=== PATIENT | female | born 1955 | race Caucasian/White ===

== ENCOUNTER → 2017-05-22 | Outpatient (CLI) | payer BC ==
[2016-05-16 12:35] VITALS: BP 128/78
[~2017-05-22] MED LIST: ACETAMINOPHEN-H1 TA2 PO; ACIPHEX20 MG PO; ALLEGRA 180MG180 MG PO; ASTELIN137 MCG/AC NS; BEPREVE15 MG/ML OP; CEFDINIR300 MG PO; EPA FISH OIL1000 MG PO; FLEXERIL 1010 MG/TAB PO; FLONASE ALLERG9.9 ML NS; LANSOPRAZOLE30 MG PO; LEVOTHYROXINE0.05 MG PO; LEXAPRO 10MG10 MG PO; LIBRAX 5 MG-2.51 CA1 PO; LISINOPRIL10 MG PO; LUNESTA3 MG PO; MEDROL DOSEPAK4 MG PO; METHOCARBAMOL750 MG PO; MIRALAX17 GM/DOSE PO; MIRAPEX0.125 M1 PO; MULTIPLE VITAMI1 TAB PO; NEURONTIN300 MG/CAP PO; PERCOCET 325 MG1 TAB PO; PREDNISONE1 MG PO; PREMARIN 0.60.625 M1 PO; PROAIR RESPICL90 MCG IH; PROVIGIL 100MG100 MG PO; REQUIP0.5 MG PO; SYSTANE LUBRICAN5 ML; TEMOVATE CREAM15 GM TP; TEMOVATE0.052 TOP; VERAMYST27.5 MCG/A INH; VITAMIN D31000 IU PO; ZOMIG5 MG PO
[2017-05-22 12:05] LABS: EOS # 0.1 (0.04-0.40); EOS % 1.4 % (1.0-5.0); HEMATOCRIT 38.4 % (37.0-47.0); HEMOGLOBIN 12.5 g/dL (12.5-16.0); LYMPH# 2.3 (1.50-4.00); MEAN CELL VOLUME 87 fl (78-100); MEAN CORPUSCULAR HEMOGLOBIN 28 pg (27-31); MEAN CORPUSCULAR HGB CONC 33 g/dL (33-37); MEAN PLATELET VOLUME 8.7 fl (7.4-10.4); MONO # 0.8 (0.20-0.80); NEU # 5.1 (1.40-6.50); PLATELET COUNT 433 K/mm3 (130-400); RED BLOOD COUNT 4.44 M/mm3 (4.10-5.30); RED CELL DISTRIBUTION WIDTH 14.5 % (11.5-14.5); WHITE BLOOD COUNT 8.3 K/mm3 (4.8-10.8)
[2017-05-22 12:15] LABS: ALBUMIN 4.1 g/dL (3.5-5.0); BUN/CREATININE RATIO 11.4 (6.0-26.0); POTASSIUM 4.5 mmol/L (3.6-5.0); TOTAL BILIRUBIN 0.4 mg/dL (0.2-1.3); TOTAL PROTEIN 7.5 g/dL (6.3-8.2)
[2017-05-22 13:09] LABS: ERYTHROCYTE SEDIMENTATION RATE 15 mm/hr (0-30)
== END ==
LOC: RAD 11:44
PROVIDERS: Internal Medicine
DX: D64.9 Anemia, unspecified (principal); I10 Essential (primary) hypertension; E78.5 Hyperlipidemia, unspecified; Z12.11 Encounter for screening for malignant neoplasm of colon; M81.0 Age-related osteoporosis without current pathological fracture; E03.4 Atrophy of thyroid (acquired); R06.00 Dyspnea, unspecified

== ENCOUNTER → 2017-09-05 | Outpatient (CLI) | payer BC ==
[2016-05-16 12:35] VITALS: BP 128/78
[2017-09-05 16:12] LABS: ALBUMIN 3.7 g/dL (3.5-5.0); BUN/CREATININE RATIO 11.4 (6.0-26.0); CALCIUM 8.7 mg/dL (8.4-10.2); POTASSIUM 4.5 mmol/L (3.6-5.0); TOTAL BILIRUBIN 0.1 mg/dL (0.2-1.3); TOTAL PROTEIN 6.9 g/dL (6.3-8.2)
[2017-09-05 16:46] LABS: EOS # 0.1 (0.04-0.40); EOS % 1.6 % (1.0-5.0); HEMATOCRIT 37.1 % (37.0-47.0); HEMOGLOBIN 11.6 g/dL (12.5-16.0); LYMPH# 1.8 (1.50-4.00); MEAN CELL VOLUME 88 fl (78-100); MEAN CORPUSCULAR HEMOGLOBIN 27 pg (27-31); MEAN CORPUSCULAR HGB CONC 31 g/dL (33-37); MEAN PLATELET VOLUME 9.2 fl (7.4-10.4); MONO # 0.8 (0.20-0.80); NEU # 5.3 (1.40-6.50); PLATELET COUNT 441 K/mm3 (130-400); RED BLOOD COUNT 4.24 M/mm3 (4.10-5.30); RED CELL DISTRIBUTION WIDTH 15.1 % (11.5-14.5); WHITE BLOOD COUNT 8.1 K/mm3 (4.8-10.8)
[2017-09-05 17:54] LABS: ERYTHROCYTE SEDIMENTATION RATE 33 mm/hr (0-30)
== END ==
LOC: LAB 15:19
PROVIDERS: Internal Medicine
DX: I10 Essential (primary) hypertension (principal); J45.998 Other asthma

== ENCOUNTER → 2018-06-12 | Outpatient (CLI) | payer MEDICARE, BC ==
[2016-05-16 12:35] VITALS: BP 128/78
[2018-06-12 16:01] LABS: EOS # 0.1 (0.04-0.40); EOS % 1.4 % (1.0-5.0); HEMATOCRIT 37.5 % (37.0-47.0); LYMPH# 2.9 (1.50-4.00); MEAN CELL VOLUME 87 fl (78-100); MEAN CORPUSCULAR HEMOGLOBIN 28 pg (27-31); MEAN CORPUSCULAR HGB CONC 32 g/dL (33-37); MEAN PLATELET VOLUME 9.2 fl (7.4-10.4); MONO # 0.8 (0.20-0.80); NEU # 6.4 (1.40-6.50); PLATELET COUNT 457 K/mm3 (130-400); RED CELL DISTRIBUTION WIDTH 15.1 % (11.5-14.5); WHITE BLOOD COUNT 10.3 K/mm3 (4.8-10.8)
[2018-06-12 17:07] LABS: ALBUMIN 4.4 g/dL (3.5-5.0); CALCIUM 9.5 mg/dL (8.4-10.2); POTASSIUM 4.5 mmol/L (3.6-5.0); TOTAL BILIRUBIN 0.2 mg/dL (0.2-1.3); TOTAL PROTEIN 7.2 g/dL (6.3-8.2)
[2018-06-12 17:11] LABS: ERYTHROCYTE SEDIMENTATION RATE 18 mm/hr (0-30)
== END ==
LOC: LAB 15:27
PROVIDERS: Internal Medicine
DX: Z12.11 Encounter for screening for malignant neoplasm of colon (principal); I10 Essential (primary) hypertension; E78.5 Hyperlipidemia, unspecified; E03.9 Hypothyroidism, unspecified; M81.0 Age-related osteoporosis without current pathological fracture

== ENCOUNTER → 2019-07-20 | Outpatient (CLI) | payer MEDICARE, BC ==
[2016-05-16 12:35] VITALS: BP 128/78
[2019-07-20 08:57] LABS: BASO # 0.1 (0.02-0.10); EOS # 0.2 (0.04-0.40); EOS % 1.4 % (1.0-5.0); HEMATOCRIT 40.8 % (37.0-47.0); HEMOGLOBIN 12.7 g/dL (12.5-16.0); LYMPH# 3.4 (1.50-4.00); MEAN CELL VOLUME 92 fl (78-100); MEAN CORPUSCULAR HEMOGLOBIN 29 pg (27-31); MEAN CORPUSCULAR HGB CONC 31 g/dL (33-37); MEAN PLATELET VOLUME 8.7 fl (7.4-10.4); MONO # 0.8 (0.20-0.80); NEU # 7.2 (1.40-6.50); PLATELET COUNT 395 K/mm3 (130-400); RED BLOOD COUNT 4.42 M/mm3 (4.10-5.30); WHITE BLOOD COUNT 11.6 K/mm3 (4.8-10.8)
[2019-07-20 09:35] LABS: ALBUMIN 3.8 g/dL (3.4-4.8); POTASSIUM 3.8 mmol/L (3.5-5.1)
[2019-07-20 09:38] LABS: TOTAL PROTEIN 6.8 g/dL (6.2-8.1)
[2019-07-20 09:40] LABS: TOTAL BILIRUBIN 0.2 mg/dL (0.2-1.2)
[2019-07-20 10:00] LABS: ERYTHROCYTE SEDIMENTATION RATE 11 mm/hr (0-30)
== END ==
LOC: LAB 08:42
PROVIDERS: Internal Medicine
DX: I10 Essential (primary) hypertension (principal); R06.00 Dyspnea, unspecified

== ENCOUNTER → 2019-07-26 | Outpatient (CLI) | payer MEDICARE, BC ==
[2016-05-16 12:35] VITALS: BP 128/78
== END ==
LOC: RAD 15:47
DX: J01.90 Acute sinusitis, unspecified (principal); R06.00 Dyspnea, unspecified; R91.1 Solitary pulmonary nodule
CPT/HCPCS: Q9967

== ENCOUNTER → 2020-02-03 | Outpatient (CLI) | payer MEDICARE, BC ==
[2016-05-16 12:35] VITALS: BP 128/78
[2020-02-03 12:43] LABS: EOS # 0.1 (0.04-0.40); EOS % 1.4 % (1.0-5.0); HEMATOCRIT 40.9 % (37.0-47.0); HEMOGLOBIN 13.4 g/dL (12.5-16.0); LYMPH# 1.9 (1.50-4.00); MEAN CELL VOLUME 90 fl (78-100); MEAN CORPUSCULAR HEMOGLOBIN 30 pg (27-31); MEAN CORPUSCULAR HGB CONC 33 g/dL (33-37); MEAN PLATELET VOLUME 8.9 fl (7.4-10.4); MONO # 0.7 (0.20-0.80); NEU # 5.2 (1.40-6.50); PLATELET COUNT 433 K/mm3 (130-400); RED BLOOD COUNT 4.55 M/mm3 (4.10-5.30); RED CELL DISTRIBUTION WIDTH 13.8 % (11.5-14.5); WHITE BLOOD COUNT 7.9 K/mm3 (4.8-10.8)
[2020-02-03 12:51] LABS: POTASSIUM 4.5 mmol/L (3.5-5.1)
[2020-02-03 12:52] LABS: ALBUMIN 4.1 g/dL (3.4-4.8)
[2020-02-03 12:53] LABS: CALCIUM 9.1 mg/dL (8.3-10.5)
[2020-02-03 12:54] LABS: TOTAL PROTEIN 7.7 g/dL (6.2-8.1)
[2020-02-03 12:56] LABS: TOTAL BILIRUBIN 0.2 mg/dL (0.2-1.2)
[2020-02-03 13:41] LABS: ERYTHROCYTE SEDIMENTATION RATE 23 mm/hr (0-30)
== END ==
LOC: LAB 12:25
PROVIDERS: Internal Medicine
DX: Z12.11 Encounter for screening for malignant neoplasm of colon (principal); I10 Essential (primary) hypertension; E78.5 Hyperlipidemia, unspecified; M81.0 Age-related osteoporosis without current pathological fracture; J45.909 Unspecified asthma, uncomplicated; E03.9 Hypothyroidism, unspecified; R20.2 Paresthesia of skin

== ENCOUNTER → 2020-02-16 | Outpatient (CLI) | payer MEDICARE, BC ==
[2016-05-16 12:35] VITALS: BP 128/78
== END ==
LOC: MAMMO 14:16
DX: Z12.31 Encounter for screening mammogram for malignant neoplasm of breast (principal)

== ENCOUNTER → 2020-02-16 | Outpatient (CLI) | payer MEDICARE, BC ==
[2016-05-16 12:35] VITALS: BP 128/78
== END ==
LOC: RAD 14:18
DX: M25.511 Pain in right shoulder (principal)

== ENCOUNTER → 2020-08-04 | Outpatient (CLI) | payer MEDICARE, BC ==
[2016-05-16 12:35] VITALS: BP 128/78
[2020-08-04 17:51] LABS: EOS # 0.1 (0.04-0.40); EOS % 1.6 % (1.0-5.0); HEMATOCRIT 39.9 % (37.0-47.0); HEMOGLOBIN 12.8 g/dL (12.5-16.0); LYMPH# 2.5 (1.50-4.00); MEAN CELL VOLUME 90 fl (78-100); MEAN CORPUSCULAR HEMOGLOBIN 29 pg (27-31); MEAN CORPUSCULAR HGB CONC 32 g/dL (33-37); MEAN PLATELET VOLUME 9.1 fl (7.4-10.4); MONO # 0.7 (0.20-0.80); NEU # 5.4 (1.40-6.50); PLATELET COUNT 412 K/mm3 (130-400); RED BLOOD COUNT 4.46 M/mm3 (4.10-5.30); RED CELL DISTRIBUTION WIDTH 13.8 % (11.5-14.5); WHITE BLOOD COUNT 8.8 K/mm3 (4.8-10.8)
[2020-08-04 17:59] LABS: ALBUMIN 4.1 g/dL (3.4-4.8); POTASSIUM 4.3 mmol/L (3.5-5.1)
[2020-08-04 18:00] LABS: CALCIUM 8.8 mg/dL (8.3-10.5)
[2020-08-04 18:01] LABS: TOTAL PROTEIN 7.2 g/dL (6.2-8.1)
[2020-08-04 18:03] LABS: TOTAL BILIRUBIN 0.2 mg/dL (0.2-1.2)
== END ==
LOC: LAB 17:33
PROVIDERS: Internal Medicine
DX: I10 Essential (primary) hypertension (principal); E03.4 Atrophy of thyroid (acquired); M81.0 Age-related osteoporosis without current pathological fracture; E78.5 Hyperlipidemia, unspecified

== ENCOUNTER → 2021-03-05 | Outpatient (CLI) | payer MEDICARE, BC ==
[2021-03-05 15:16] LABS: BASO # 0.02 (0.02-0.10); EOS # 0.16 (0.04-0.40); EOS % 2.6 % (1.0-5.0); HEMATOCRIT 40.3 % (37.0-47.0); HEMOGLOBIN 13.4 g/dL (12.5-16.0); LYMPH# 2.07 (1.50-4.00); MEAN CELL VOLUME 90 fl (78-100); MEAN CORPUSCULAR HEMOGLOBIN 30 pg (27-31); MEAN CORPUSCULAR HGB CONC 33 g/dL (33-37); MEAN PLATELET VOLUME 9.2 fl (7.4-10.4); MONO # 0.55 (0.20-0.80); NEU # 3.22 (1.40-6.50); PLATELET COUNT 387 K/mm3 (130-400); RED BLOOD COUNT 4.48 M/mm3 (4.10-5.30); RED CELL DISTRIBUTION WIDTH 13.7 % (11.5-14.5)
[2021-03-05 15:29] LABS: POTASSIUM 4.4 mmol/L (3.5-5.1)
[2021-03-05 15:30] LABS: CALCIUM 9.4 mg/dL (8.3-10.5)
[2021-03-05 15:32] LABS: TOTAL PROTEIN 7.4 g/dL (6.2-8.1)
[2021-03-05 15:33] LABS: TOTAL BILIRUBIN 0.2 mg/dL (0.2-1.2)
[2021-03-05 15:38] LABS: MAGNESIUM 2.25 mg/dL (1.60-2.60)
== END ==
LOC: LAB 14:39
PROVIDERS: Internal Medicine
DX: I10 Essential (primary) hypertension (principal); K90.9 Intestinal malabsorption, unspecified; E78.5 Hyperlipidemia, unspecified; E03.4 Atrophy of thyroid (acquired)

== ENCOUNTER → 2021-03-14 | Outpatient (CLI) | payer MEDICARE, BC | LOC: MAMMO 15:15 | DX: Z12.31 Encounter for screening mammogram for malignant neoplasm of breast (principal) ==

== ENCOUNTER → 2021-06-14 | Outpatient (CLI) | payer MEDICARE, BC ==
[2021-06-14 17:07] LABS: POTASSIUM 4.5 mmol/L (3.5-5.1)
[2021-06-14 17:08] LABS: ALBUMIN 4.3 g/dL (3.4-4.8)
[2021-06-14 17:09] LABS: CALCIUM 9.3 mg/dL (8.3-10.5)
[2021-06-14 17:10] LABS: TOTAL PROTEIN 7.8 g/dL (6.2-8.1)
[2021-06-14 17:12] LABS: TOTAL BILIRUBIN 0.3 mg/dL (0.2-1.2)
== END ==
LOC: LAB 16:40
PROVIDERS: Internal Medicine
DX: E78.5 Hyperlipidemia, unspecified (principal)

== ENCOUNTER → 2022-03-11 | Outpatient (CLI) | payer MEDICARE, BC ==
[2022-03-11 14:35] LABS: BASO # 0.03 K/mm3 (0.02-0.10); EOS # 0.12 K/mm3 (0.04-0.40); EOS % 1.7 % (1.0-5.0); HEMATOCRIT 39.7 % (37.0-47.0); HEMOGLOBIN 13.3 g/dL (12.5-16.0); LYMPH# 1.69 K/mm3 (1.50-4.00); MEAN CELL VOLUME 91 fl (78-100); MEAN CORPUSCULAR HEMOGLOBIN 30 pg (27-31); MEAN CORPUSCULAR HGB CONC 34 g/dL (33-37); MEAN PLATELET VOLUME 8.8 fl (7.4-10.4); MONO # 0.54 K/mm3 (0.20-0.80); NEU # 4.85 K/mm3 (1.40-6.50); PLATELET COUNT 357 K/mm3 (130-400); RED BLOOD COUNT 4.37 M/mm3 (4.10-5.30); RED CELL DISTRIBUTION WIDTH 13.2 % (11.5-14.5); WHITE BLOOD COUNT 7.2 K/mm3 (4.8-10.8)
[2022-03-11 14:51] LABS: ALBUMIN 4.1 g/dL (3.4-4.8); POTASSIUM 4.5 mmol/L (3.5-5.1)
[2022-03-11 14:52] LABS: CALCIUM 8.8 mg/dL (8.3-10.5)
[2022-03-11 14:54] LABS: TOTAL PROTEIN 7.4 g/dL (6.2-8.1)
[2022-03-11 14:56] LABS: TOTAL BILIRUBIN 0.3 mg/dL (0.2-1.2)
[2022-03-11 15:00] LABS: MAGNESIUM 1.96 mg/dL (1.60-2.60)
== END ==
LOC: LAB 14:19
PROVIDERS: Internal Medicine
DX: M81.0 Age-related osteoporosis without current pathological fracture (principal); Z12.39 Encounter for other screening for malignant neoplasm of breast; J45.909 Unspecified asthma, uncomplicated; G43.909 Migraine, unspecified, not intractable, without status migrainosus; G63 Polyneuropathy in diseases classified elsewhere; E03.4 Atrophy of thyroid (acquired); G89.29 Other chronic pain; I10 Essential (primary) hypertension; K90.9 Intestinal malabsorption, unspecified; E78.5 Hyperlipidemia, unspecified

== ENCOUNTER → 2022-03-27 | Outpatient (CLI) | payer MEDICARE, BC | LOC: MAMMO 14:21 | DX: Z12.31 Encounter for screening mammogram for malignant neoplasm of breast (principal) ==

== ENCOUNTER → 2022-04-04 | Outpatient (CLI) | payer MEDICARE, BC | LOC: MAMMO 11:47 | DX: N64.9 Disorder of breast, unspecified (principal) ==

== ENCOUNTER → 2023-05-14 | Outpatient (CLI) | payer MEDICARE, BC | LOC: MAMMO 04-30 13:30 | DX: Z12.31 Encounter for screening mammogram for malignant neoplasm of breast (principal) ==

== ENCOUNTER → 2023-12-18 | Outpatient (CLI) | payer MEDICARE, BC | LOC: RAD 09:31 | DX: Z13.820 Encounter for screening for osteoporosis (principal); M85.80 Other specified disorders of bone density and structure, unspecified site ==

== ENCOUNTER → 2024-05-31 | Outpatient (CLI) | payer MEDICARE, BC ==
[2024-05-31 15:34] LABS: BASO # 0.03 K/mm3 (0.02-0.10); EOS # 0.13 K/mm3 (0.04-0.40); EOS % 1.4 % (1.0-5.0); HEMATOCRIT 42.5 % (37.0-47.0); LYMPH# 1.71 K/mm3 (1.50-4.00); MEAN CELL VOLUME 93 fl (78-100); MEAN CORPUSCULAR HEMOGLOBIN 31 pg (27-31); MEAN CORPUSCULAR HGB CONC 33 g/dL (33-37); MEAN PLATELET VOLUME 8.9 fl (7.4-10.4); MONO # 0.72 K/mm3 (0.20-0.80); NEU # 6.66 K/mm3 (1.40-6.50); PLATELET COUNT 361 K/mm3 (130-400); RED BLOOD COUNT 4.59 M/mm3 (4.10-5.30); WHITE BLOOD COUNT 9.3 K/mm3 (4.8-10.8)
[2024-05-31 15:41] LABS: CALCIUM 9.9 mg/dL (8.3-10.5)
[2024-05-31 15:43] LABS: TOTAL PROTEIN 6.8 g/dL (6.2-8.1)
[2024-05-31 15:44] LABS: TOTAL BILIRUBIN 0.3 mg/dL (0.2-1.2)
[2024-05-31 15:49] LABS: MAGNESIUM 1.95 mg/dL (1.60-2.60)
== END ==
LOC: LAB 15:21
PROVIDERS: Internal Medicine
DX: E78.5 Hyperlipidemia, unspecified (principal); K90.9 Intestinal malabsorption, unspecified; M85.80 Other specified disorders of bone density and structure, unspecified site; R73.03 Prediabetes

== ENCOUNTER → 2024-06-03 | Outpatient (CLI) | payer MEDICARE, BC | LOC: MAMMO 10:50 | DX: Z12.31 Encounter for screening mammogram for malignant neoplasm of breast (principal) ==

== ENCOUNTER → 2024-08-19 | Outpatient (CLI) | payer MEDICARE, BC ==
[2024-08-19 15:40] LABS: BASO # 0.02 K/mm3 (0.02-0.10); EOS # 0.11 K/mm3 (0.04-0.40); EOS % 1.5 % (1.0-5.0); HEMOGLOBIN 12.9 g/dL (12.5-16.0); LYMPH# 1.22 K/mm3 (1.50-4.00); MEAN CELL VOLUME 92 fl (78-100); MEAN CORPUSCULAR HEMOGLOBIN 30 pg (27-31); MEAN CORPUSCULAR HGB CONC 32 g/dL (33-37); MEAN PLATELET VOLUME 9.1 fl (7.4-10.4); MONO # 0.47 K/mm3 (0.20-0.80); NEU # 5.61 K/mm3 (1.40-6.50); PLATELET COUNT 322 K/mm3 (130-400); RED BLOOD COUNT 4.36 M/mm3 (4.10-5.30); WHITE BLOOD COUNT 7.4 K/mm3 (4.8-10.8)
[2024-08-19 15:46] LABS: TOTAL PROTEIN 7.1 g/dL (6.2-8.1)
[2024-08-19 15:48] LABS: TOTAL BILIRUBIN 0.3 mg/dL (0.2-1.2)
[2024-08-19 15:53] LABS: MAGNESIUM 1.97 mg/dL (1.60-2.60)
== END ==
LOC: LAB 15:24
PROVIDERS: Internal Medicine
DX: I10 Essential (primary) hypertension (principal); K90.9 Intestinal malabsorption, unspecified; R73.03 Prediabetes